=== PATIENT | male | born 1960 | race Caucasian/White ===

== ENCOUNTER 2023-05-03 00:27 | Emergency (ER) | payer MEDICARE, MEDICAID, SELFPAY ==
[2023-05-03 00:29] VITALS: BP 156/85; PULSE 86; RESP 18; TEMP 36.6; O2SAT 95; BMI 42.6
--- NOTE | 2023-05-03 01:12 | EX.ED.GUMALE ---
HPI History of Present Illness Chief Complaint: Complaint Narrative Narrative: 62-year-old male past medical history of congestive heart failure, had been on Eliquis previously but held for 3 days because he had surgery on his scrotum this morning/yesterday morning by [facility] urology, Dr. Fowler. While he was unsure about what type of surgery he had, he may have had a hydrocele, but states that his scrotum had been swollen for at least a year. He states the surgery went well and he was released from the outpatient surgery center/office at around 1 PM, 12 hours ago. The CHRISTINA drain was left in place in his left scrotum. He reached down and noticed that there was bleeding around the CHRISTINA drain site. He went through a large amount of paper towel/towels to get the bleeding to stop. He denies any chest pain or lightheadedness, and thinks that the bleeding has stopped but presents to the emergency department for evaluation of his bleeding around the CHRISTINA drain. States that since he had been home, he had emptied the CHRISTINA drain approximately 3 times although it was not completely full each time. He noticed that currently, there has been less drainage from his CHRISTINA drain. PFSH PFSH Allergy/AdvReac Type Severity Reaction Status Date / Time No Known Allergies Allergy Verified 05/03/23 00:28 Social History Smoking Status: Never smoker ROS ROS ED ROS Narrative Constitutional: No fever, no chills. HEENT: No sore throat. No neck pain. No loss of vision. No rhinorrhea. Cardiovascular: No chest pain. No palpitations. No pedal edema. Respiratory: No cough, no shortness of breath. Abdominal: No abdominal pain. No nausea. No vomiting. Genitourinary: No dysuria. No hematuria. Bleeding from CHRISTINA drain in left scrotum. Musculoskeletal: No myalgias. No arthralgias. Neurologic: No headaches. No dizziness. No lightheadedness. Skin: No rash. No change in color. Psychiatric: No depression. No anxiety. EXAM Physical Exam Narrative Exam Narrative: Afebrile. Vital signs noted. HEENT: Normocephalic. Atraumatic. PERRL, EOMI. Neck soft and supple. No point tenderness or step off. Cardiovascular: Regular rate and rhythm. No murmurs, rubs, or gallops appreciated. Respiratory: No tachypnea. Lungs clear to auscultation bilaterally. Gastrointestinal: Abdomen soft, nontender, with normoactive bowel sounds. No rebound or guarding. Urinary: Positive CHRISTINA drain in left scrotum, chronic swelling noted of entire scrotum. Small amount of blood in CHRISTINA drain, positive clot surrounding CHRISTINA drain insertion site. No erythema. Neurological: Awake. Alert. Nonfocal, nonlateralizing. Skin: No rash. Normal color. No pallor. Musculoskeletal: No pedal edema. Full range of motion extremities. Const Vital Signs: 05/03/23 00:29 Temperature 97.9 F Temperature Source Temporal Pulse Rate 86 Respiratory Rate 18 Blood Pressure 156/85 H Blood Pressure Mean 108 Pulse Ox 95 Oxygen Delivery Method Room Air MDM MDM MDM Narrative Medical decision making narrative: Concern is for postoperative bleeding, and possible clot of CHRISTINA drain. I will check a CBC to make sure that he has not lost a large amount of blood that would require transfusion. I attempted to contact his urologist at [facility]. Was able to speak with their medical customer service representative on-call, Angel, who agrees with close outpatient follow-up later this morning. The urologist is going to be in the [place] office. Attempt was already made to strip the CHRISTINA drain by the RNs. I did check his CBC and reviewed it and he has a hemoglobin stable at 11.5. Platelet count is normal at 248. As the bleeding has stopped, I feel he can be discharged to follow-up with his urologist. Return instructions to the emergency department were reviewed. Disposition is discharged home in stable condition. History & Record Review Discussion w/independent historian: Patient Lab Data Attestation: I reviewed the patient's lab results. Labs: Laboratory Results - last 24 hr 05/03/23 00:46 WBC 9.9 RBC 3.77 L Hgb 11.5 L Hct 35.8 L MCV 95.0 H MCH 30.5 MCHC 32.1 RDW Std Deviation 62.4 H RDW Coeff of Neda 18.0 H Plt Count 248 MPV 9.6 Immature Gran % (Auto) 0.400 Neut % (Auto) 86.4 H Lymph % (Auto) 4.8 L [place] % (Auto) 7.7 Eos % (Auto) 0.1 Baso % (Auto) 0.6 Absolute Neuts (auto) 8.6 H Absolute Lymphs (auto) 0.48 L Nucleated RBC % 0 Differential Comment SCANNED Discharge Plan Triage Chief Complaint: Complaint ED Provider: Sudhakar Costa Dx/Rx/DC Orders Clinical Impression: Post-op bleeding, CHRISTINA drain bleeding Instructions: ED Post Op Wound Check, Bleeding Primary Care Provider: BRETT DOSHI Referrals: BRETT DOSHI [Other] Activity Restrictions/Additional Instructions: Follow-up with your urologist later today. Call the office later this morning for an appointment. He should be in the [place] office. Disposition Disposition: Home, Self Care
[2023-05-03 01:26] LABS: Absolute Lymphocyte Count 0.48 X10^3/uL (0.83-4.51); Absolute Neutrophil Count 8.6 X10^3/uL (2.0-7.7); Basophil# 0.06 X10^3/uL; Basophil% 0.6 % (0-1); Eosinophil# 0.01 X10^3/uL; Eosinophils% 0.1 % (0-5); Hematocrit 35.8 % (40-54); Hemoglobin 11.5 g/dL (13.0-16.5); Lymphocyte # 0.48 X10^3/ul (0.83-4.51); Lymphocyte % 4.8 % (19-41); Mean Corp Hgb Conc 32.1 g/dL (32-36); Mean Corpuscular Hgb 30.5 pg (27.0-32.0); Mean Platelet Vol. 9.6 fl (6.2-12.0); Monocyte# 0.76 X10^3/uL; Monocyte% 7.7 % (0-10); NRBC Flagged by Analyzer 0 % (0-5); Neutrophil # 8.56 X10^3/uL (2.7-7.7); Neutrophil % 86.4 % (47-70); POSITIVE DIFFERENTIAL YES; Platelet Count 248 K/mm3 (150-450); RBC Distribution Width SD 62.4 fl (35.1-43.9); Red Blood Count 3.77 M/mm3 (4.6-6.2); White Blood Count 9.9 K/mm3 (4.4-11.0)
[2023-05-03 01:28] VITALS: RESP 16
[2023-05-03 01:32] LABS: Differential Indicated SCAN CRITERIA MET
[2023-05-03 01:53] LABS: Differential Comment SCANNED
--- NOTE | 2023-05-03 04:05 | ED.RN ---
wound assessed. no active bleeding noted. ariela drain has minimal drainage noted no bleeding from insertion site. testicle elevated. Dr. Costa made aware
== END 2023-05-03 09:58 | disposition home or self-care (01) ==
PROVIDERS: Emergency Provider Emergency Medicine; Visit Provider Emergency Medicine
DX: N99.820 Postprocedural hemorrhage of a genitourinary system organ or structure following a genitourinary system procedure (principal); I50.9 Heart failure, unspecified; N50.9 Disorder of male genital organs, unspecified; Z79.01 Long term (current) use of anticoagulants; Z48.00 Encounter for change or removal of nonsurgical wound dressing
CPT/HCPCS: 85025; 99283